=== PATIENT | female | born 1950 | race Caucasian/White ===

== ENCOUNTER 2017-12-20 16:56 | Emergency (ER) | payer OTHER, MEDICARE ==
[2017-12-20 17:15] VITALS: BP 155/89; PULSE 68; TEMP 98; BMI 40.2
[2017-12-20] MEDS ORDERED: SODIUM CHLORIDE 1,000 ML IV STA (17:50)
[2017-12-20 18:05] LABS: BASO % 1.8 % (0-2.0); EOS % 0.4 % (0-4.5); HEMATOCRIT 39.9 % (32.4-45.2); HEMOGLOBIN 13.6 GM/dl (10.7-15.3); LYMPH % 17.5 % (8-40); MCH 30.3 pg (25.7-33.7); MCHC 34.2 g/dl (32.0-36.0); MEAN CELL VOLUME 88.6 fl (80-96); MEAN PLT VOLUME 9.6 fl (7.5-11.1); MONO % 3.3 % (3.8-10.2); PLATELET COUNT 295 K/MM3 (134-434); RBC 4.51 M/mm3 (3.60-5.2); RDW 12.5 % (11.6-15.6); WHITE BLOOD COUNT 10.6 K/mm3 (4.0-10.8)
[2017-12-20 18:08] LABS: PH,URINE 5.5 (4.5-8); URINE APPEARANCE Cloudy; URINE BILIRUBIN 1+ (NEGATIVE); URINE GLUCOSE (UA) Negative (NEGATIVE); URINE KETONE Trace (NEGATIVE); URINE LEUK ESTERASE Negative (NEGATIVE); URINE NITRITE Negative (NEGATIVE); URINE PROTEIN 3+ (NEGATIVE); URINE UROBILINOGEN 0.2 (0.2-1.0)
[2017-12-20 18:09] LABS: URINE COLOR DK YELLOW
[2017-12-20 18:23] LABS: URINE RBC >100 /hpf (0-3)
[2017-12-20 18:24] LABS: EPI CELLS FEW /HPF; URINE BACTERIA MODERATE /hpf (NEGATIVE)
[2017-12-20 18:26] LABS: ALBUMIN 4.5 g/dl (3.5-5.0); ALK PHOS 60 U/L (32-92); ANION GAP 11 (8-16); BILIRUBIN,TOTAL 1.4 mg/dl (0.2-1.0); BLOOD UREA NITROGEN 23 mg/dl (7-18); CALCIUM 9.2 mg/dl (8.4-10.2); CHLORIDE 103 mmol/L (98-107); CO2 22 mmol/L (22-28); GLUCOSE,RANDOM 156 mg/dl (74-106); POTASSIUM 4.3 mmol/L (3.5-5.1); SGOT/AST 30 U/L (10-42); SGPT/ALT 34 U/L (10-40); SODIUM 136 mmol/L (136-145); TOT PROT 7.4 g/dl (6.4-8.3)
[2017-12-20 18:33] LABS: CREATININE < 0.8 mg/dl (0.6-1.3)
--- NOTE | 2017-12-20 19:03 | PDOC ---
History of Present Illness - General History Source: Patient Exam Limitations: No Limitations - History of Present Illness Initial Comments: 12/20/17 19:07 The patient is a 67 year old female with a significant past medical history of MVP, HLD, hypertension, hypothyroid, depression, hearing loss of right ear who presents to the emergency department complaining of right lower quadrant pain since this morning. The patient reports right lower quadrant pain radiating to right ribs and right flank. The patient describes the pain as intermittent, worsening, and sharp in nature. She reports associated symptoms of dizziness, chills, diaphoresis, nausea, and urinary urgency. She states she felt nauseous yesterday, but had no other symptoms. She reports she stopped taking metformin because it olivia her nauseous, but she will follow up this Wednesday to start new medication. The patient denies chest pain, shortness of breath, and headache. Denies fevers, vomiting, diarrhea, and constipation. Denies dysuria, frequency, and hematuria. Allergies: iodine Past surgical history: Ear, TAHBSO, Laparoscopic gallbladder, spinal surgery ( 2010), Carpal tunnel Social history: Former smoker. No reported alcohol or drug use. <Tristan Mercado - Last Filed: 12/20/17 19:06> - General History Source: Patient Exam Limitations: No Limitations <Kumar Chavarria - Last Filed: 01/07/18 07:46> - General Chief Complaint: Nausea Stated Complaint: NAUSEA RIGHT LOWER ABDOMINAL PAIN Time Seen by Provider: 12/20/17 17:22 Past History <Tristan Mercado - Last Filed: 12/20/17 19:06> - Past Medical History Anemia: No Asthma: No Cancer: No Cardiac Disorders: No CVA: No COPD: No CHF: No Dementia: No Diabetes: Yes (BORDERLINE) GI Disorders: No Disorders: No HTN: Yes Hypercholesterolemia: Yes Liver Disease: No Psychiatric Problems: Yes (DEPRESSION) Seizures: No Thyroid Disease: Yes (HYPOTHYROIDISM) Other medical history: MVP, HEARING LOSS REIGHT EAR - Surgical History Abdominal Surgery: Yes Appendectomy: No Cardiac Surgery: No Cholecystectomy: Yes (LAP) Lung Surgery: No Neurologic Surgery: Yes (SPINE SX 10/2010) Orthopedic Surgery: Yes - Suicide/Smoking/Psychosocial Hx Smoking History: Former smoker Have you smoked in the past 12 months: No Information on smoking cessation initiated: No Hx Alcohol Use: No Drug/Substance Use Hx: No Substance Use Type: None Hx Substance Use Treatment: No <Kumar Chavarria - Last Filed: 01/07/18 07:46> - Past Medical History Allergies/Adverse Reactions: Allergies Allergy/AdvReac Type Severity Reaction Status Date / Time iodine Allergy Severe Swelling Verified 12/20/17 16:59 Home Medications: Ambulatory Orders Atorvastatin Calcium [Lipitor] 20 mg PO DAILY 01/16/13 Levothyroxine [Synthroid] 25 mcg PO DAILY 01/16/13 Nebivolol [Bystolic] 20 mg PO DAILY 01/16/13 Duloxetine HCl [Cymbalta] 120 mg PO DAILY 12/20/17 Isosorbide Mononitrate [Imdur -] 30 mg PO DAILY 12/20/17 Oxycodone HCl/Acetaminophen [Percocet 5-325 mg Tablet] 1 tab PO Q6H PRN #12 tablet MDD 3 tabs 12/20/17 Tamsulosin HCl [Flomax] 0.4 mg PO DAILY #10 capsule 12/20/17 Review of Systems - Review of Systems Able to Perform ROS?: Yes Comments:: GENERAL/CONSTITUTIONAL: (+)Chills. No fever. No weakness. HEAD, EYES, EARS, NOSE AND THROAT: No change in vision. No ear pain or discharge. No sore throat. CARDIOVASCULAR: No chest pain or shortness of breath. RESPIRATORY: No cough, wheezing, or hemoptysis. GASTROINTESTINAL: (+)Nausea. No vomiting, diarrhea or constipation. GENITOURINARY: (+)Urinary urgency. No dysuria or frequency. MUSCULOSKELETAL: (+)Right lower quadrant pain. (+)Right flank pain. No joint or muscle swelling. No neck pain. SKIN: No rash NEUROLOGIC: (+)Dizziness. No headache, vertigo, loss of consciousness, or change in strength/sensation. ENDOCRINE: No increased thirst. No abnormal weight change. HEMATOLOGIC/LYMPHATIC: No anemia, easy bleeding, or history of blood clots. ALLERGIC/IMMUNOLOGIC: No hives or skin allergy. <Tristan Mercado - Last Filed: 12/20/17 19:06> *Physical Exam - Vital Signs Last Vital Signs Temp Pulse Resp BP Pulse Ox 98 F 68 20 155/89 100 12/20/17 16:58 12/20/17 16:58 12/20/17 16:58 12/20/17 16:58 12/20/17 16:58 - Physical Exam Comments: GENERAL: Awake, alert, and fully oriented, in no acute distress HEAD: No signs of trauma EYES: PERRLA, EOMI, sclera anicteric, conjunctiva clear ENT: Auricles normal inspection, hearing grossly normal, nares patent, Moist mucosa NECK: Normal ROM, supple, no JVD, or masses LUNGS: Breath sounds equal, clear to auscultation bilaterally. No wheezes, and no crackles HEART: Regular rate and rhythm, normal S1 and S2, no murmurs, rubs or gallops ABDOMEN: (+)Mild tenderness to palpation to right lower quadrant Soft. No guarding, no rebound. No masses MUSCULOSKELETAL: (+)Right CVA tenderness. EXTREMITIES: Normal range of motion, no edema. No clubbing or cyanosis. No cords, erythema, or tenderness NEUROLOGICAL: Cranial nerves II through XII grossly intact. Normal speech, normal gait SKIN: Warm, Dry, normal turgor, no rashes or lesions noted. <Tristan Mercado - Last Filed: 12/20/17 19:06> - Vital Signs Last Vital Signs Temp Pulse Resp BP Pulse Ox 98 F 68 20 155/89 100 12/20/17 16:58 12/20/17 16:58 12/20/17 16:58 12/20/17 16:58 12/20/17 16:58 <Kumar Chavarria - Last Filed: 01/07/18 07:46> ED Treatment Course - LABORATORY CBC & Chemistry Diagram: 12/20/17 17:51 12/20/17 17:51 - ADDITIONAL ORDERS Additional order review: Laboratory Results 12/20/17 12/20/17 17:51 17:51 Sodium 136 Potassium 4.3 Chloride 103 Carbon Dioxide 22 D Anion Gap 11 BUN 23 H Creatinine < 0.8 D Creat Clearance w eGFR > 60 Random Glucose 156 H Calcium 9.2 Total Bilirubin 1.4 H AST 30 D ALT 34 D Alkaline Phosphatase 60 Total Protein 7.4 Albumin 4.5 Urine Color Dk yellow Urine Appearance Cloudy Urine pH 5.5 Ur Specific Dawn >= 1.030 H Urine Protein 3+ H Urine Glucose (UA) Negative Urine Ketones Trace Urine Blood 3+ H Urine Nitrite Negative Urine Bilirubin 1+ H Urine Urobilinogen 0.2 Ur Leukocyte Esterase Negative Urine RBC >100 Urine WBC 5-10 Ur Epithelial Cells Few Urine Bacteria Moderate 12/20/17 17:51 RBC 4.51 MCV 88.6 MCHC 34.2 RDW 12.5 MPV 9.6 Neutrophils % 77.0 Lymphocytes % 17.5 Monocytes % 3.3 L Eosinophils % 0.4 Basophils % 1.8 - Medications Given in the ED: ED Medications Discontinued Medications Generic Name Dose Route Start Last Admin Trade Name Freq PRN Reason Stop Dose Admin Sodium Chloride 1,000 mls @ 1,000 mls/hr 12/20/17 17:50 12/20/17 17:59 Normal Saline - IV 12/20/17 18:49 1,000 mls/hr ASDIR STA Administration <Tristan Mercado - Last Filed: 12/20/17 19:06> - LABORATORY CBC & Chemistry Diagram: 12/20/17 17:51 12/20/17 17:51 - ADDITIONAL ORDERS Additional order review: Laboratory Results 12/20/17 12/20/17 17:51 17:51 Sodium 136 Potassium 4.3 Chloride 103 Carbon Dioxide 22 D Anion Gap 11 BUN 23 H Creatinine < 0.8 D Creat Clearance w eGFR > 60 Random Glucose 156 H Calcium 9.2 Total Bilirubin 1.4 H AST 30 D ALT 34 D Alkaline Phosphatase 60 Total Protein 7.4 Albumin 4.5 Urine Color Dk yellow Urine Appearance Cloudy Urine pH 5.5 Ur Specific Dawn >= 1.030 H Urine Protein 3+ H Urine Glucose (UA) Negative Urine Ketones Trace Urine Blood 3+ H Urine Nitrite Negative Urine Bilirubin 1+ H Urine Urobilinogen 0.2 Ur Leukocyte Esterase Negative Urine RBC >100 Urine WBC 5-10 Ur Epithelial Cells Few Urine Bacteria Moderate 12/20/17 17:51 RBC 4.51 MCV 88.6 MCHC 34.2 RDW 12.5 MPV 9.6 Neutrophils % 77.0 Lymphocytes % 17.5 Monocytes % 3.3 L Eosinophils % 0.4 Basophils % 1.8 - RADIOLOGY Radiology Studies Ordered: Category Date Time Status SPIRAL- RENAL-STONE CT [CT] Stat CT Scan 12/20/17 17:48 Ordered - Medications Given in the ED: ED Medications Discontinued Medications Generic Name Dose Route Start Last Admin Trade Name Freq PRN Reason Stop Dose Admin Sodium Chloride 1,000 mls @ 1,000 mls/hr 12/20/17 17:50 12/20/17 17:59 Normal Saline - IV 12/20/17 18:49 1,000 mls/hr ASDIR STA Administration <Kumar Chavarria - Last Filed: 01/07/18 07:46> Medical Decision Making - Medical Decision Making 12/20/17 18:58 A portion of this note was documented by scribe services under my direction. I have reviewed the details of the note, within reason, and agree with the documentation with the following case summary and management plan written by me. Patient treated in the ED. Nursing notes are reviewed and incorporated into the medical decision-making. Vital signs reviewed. Peripheral IV access obtained by the nurse, laboratory studies are drawn and sent, reviewed and interpreted by myself. Vital Signs Temp Pulse Resp BP Pulse Ox 98 F 68 20 155/89 100 12/20/17 16:58 12/20/17 16:58 12/20/17 16:58 12/20/17 16:58 12/20/17 16:58 67-year-old female with history of diabetes, hyperlipidemia presents with right lower quadrant pain and right flank pain since this morning. The patient was feeling somewhat nauseous but denies any pain yesterday. Today, the patient started feel right flank pain and right lower quadrant pain with nausea. No vomiting or fevers. Denies dysuria. Patient started noticing dark in color for urine. While waiting here in the ER, the patient's pain improved significantly. The patient certainly has dark color urine concerning for kidney stone. I suspect this is likely renal colic versus less likely appendicitis. We'll obtain a spiral CT, labs and urinalysis and reassess. Patient signed out to Dr. Osorio for further management and disposition. <Kumar Chavarria - Last Filed: 01/07/18 07:46> *DC/Admit/Observation/Transfer - Attestations Scribe Attestion: Documentation prepared by Tristan Mercado, acting as medical record specialist for Kumar Chavarria MD. <Tristan Mercado - Last Filed: 12/20/17 19:06> <Kumar Chavarria - Last Filed: 01/07/18 07:46> Diagnosis at time of Disposition: Renal colic on right side - Discharge Dispostion Disposition: HOME Condition at time of disposition: Stable - Prescriptions Prescriptions: Oxycodone HCl/Acetaminophen [Percocet 5-325 mg Tablet] 1 tab PO Q6H PRN #12 tablet MDD 3 tabs PRN Reason: Pain Level 7 - 10 Tamsulosin HCl [Flomax] 0.4 mg PO DAILY #10 capsule - Patient Instructions Printed Discharge Instructions: Kidney Stones -- Adult Additional Instructions: drink plenty of water flomax 0.4 mg daily ibuprofen/acetaminophen as needed for mild to moderate pain percocet 5/325 as needed for severe pain return to ER if you have persistent severe pain or vomiting strain all urine and keep all fragments for analysis followup with your doctor for urology referral if pain persists for more than 5- 7 days
--- NOTE | 2017-12-20 19:51 | PDOC ---
*Physical Exam - Vital Signs Last Vital Signs Temp Pulse Resp BP Pulse Ox 98 F 68 20 155/89 100 12/20/17 16:58 12/20/17 16:58 12/20/17 16:58 12/20/17 16:58 12/20/17 16:58 ED Treatment Course - LABORATORY CBC & Chemistry Diagram: 12/20/17 17:51 12/20/17 17:51 - ADDITIONAL ORDERS Additional order review: Laboratory Results 12/20/17 12/20/17 17:51 17:51 Sodium 136 Potassium 4.3 Chloride 103 Carbon Dioxide 22 D Anion Gap 11 BUN 23 H Creatinine < 0.8 D Creat Clearance w eGFR > 60 Random Glucose 156 H Calcium 9.2 Total Bilirubin 1.4 H AST 30 D ALT 34 D Alkaline Phosphatase 60 Total Protein 7.4 Albumin 4.5 Urine Color Dk yellow Urine Appearance Cloudy Urine pH 5.5 Ur Specific [place] >= 1.030 H Urine Protein 3+ H Urine Glucose (UA) Negative Urine Ketones Trace Urine Blood 3+ H Urine Nitrite Negative Urine Bilirubin 1+ H Urine Urobilinogen 0.2 Ur Leukocyte Esterase Negative Urine RBC >100 Urine WBC 5-10 Ur Epithelial Cells Few Urine Bacteria Moderate 12/20/17 17:51 RBC 4.51 MCV 88.6 MCHC 34.2 RDW 12.5 MPV 9.6 Neutrophils % 77.0 Lymphocytes % 17.5 Monocytes % 3.3 L Eosinophils % 0.4 Basophils % 1.8 - Medications Given in the ED: ED Medications Discontinued Medications Generic Name Dose Route Start Last Admin Trade Name Freq PRN Reason Stop Dose Admin Sodium Chloride 1,000 mls @ 1,000 mls/hr 12/20/17 17:50 12/20/17 17:59 Normal Saline - IV 12/20/17 18:49 1,000 mls/hr ASDIR STA Administration Progress Note - Progress Note Progress Note: Care of this patient received from Dr. Chavarria. Abdominal/pelvic renal stone protocol CT reveals moderate hydronephrosis/ hydroureter and 4.4 mm stone in the distal ureter. Results discussed with the patient. She is currently comfortable without development of any new symptoms. Patient will be discharged with instructions to drink plenty of fluids and prescription for Flomax 0.4 mg to be taken once a day. 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 She should return to the emergency room if she has persistent, severe pain or develops vomiting. Prescription for Percocet 5/325 ( #12) will be sent to her pharmacy to be used as needed for severe pain; meanwhile, ibuprofen will be used for [id number] pain *DC/Admit/Observation/Transfer Diagnosis at time of Disposition: Renal colic on right side - Discharge Dispostion Disposition: HOME Condition at time of disposition: Stable - Prescriptions Prescriptions: Oxycodone HCl/Acetaminophen [Percocet 5-325 mg Tablet] 1 tab PO Q6H PRN #12 tablet MDD 3 tabs PRN Reason: Pain Level 7 - 10 Tamsulosin HCl [Flomax] 0.4 mg PO DAILY #10 capsule - Referrals - Patient Instructions Printed Discharge Instructions: Kidney Stones -- Adult Additional Instructions: drink plenty of water flomax 0.4 mg daily ibuprofen/acetaminophen as needed for mild to moderate pain percocet 5/325 as needed for severe pain return to ER if you have persistent severe pain or vomiting strain all urine and keep all fragments for analysis followup with your doctor for urology referral if pain persists for more than 5- 7 days - Post Discharge Activity
--- NOTE | 2017-12-22 15:29 | EKG ---
Test Reason : Blood Pressure : / mmHG Vent. Rate : 063 BPM Atrial Rate : 063 BPM P-R Int : 150 ms QRS Dur : 080 ms QT Int : 420 ms P-R-T Axes : 053 -12 048 degrees QTc Int : 429 ms NORMAL SINUS RHYTHM NORMAL ECG WHEN COMPARED WITH ECG OF 06-JUN-2007 13:52, NO SIGNIFICANT CHANGE WAS FOUND Confirmed by BETH TSANG MD ([id number]) on 12/22/2017 3:29:02 PM Referred By: MADYSON Confirmed By:BETH TSANG MD
== END 2017-12-20 20:29 | disposition home or self-care (01) ==
LOC: FER 16:56
PROC: 3E0337Z Introduction of Electrolytic and Water Balance Substance into Peripheral Vein, Percutaneous Approach (ICD-10-PCS; principal; 2017-12-20)
DX: N20.1 Calculus of ureter (principal); I10 Essential (primary) hypertension; E78.9 Disorder of lipoprotein metabolism, unspecified; E03.9 Hypothyroidism, unspecified; I34.1 Nonrheumatic mitral (valve) prolapse; F32.9 Major depressive disorder, single episode, unspecified; H91.91 Unspecified hearing loss, right ear
CPT/HCPCS: 36415; 74176; 80053; 81003; 81015; 85025; 87086; 93005; 96360; 99283-25; J7030

== ENCOUNTER 2018-03-22 13:40 | Emergency (ER) | payer OTHER, MEDICARE ==
[2018-03-22] MEDS ORDERED: morphine CARPU-JECT 4 MG/1 ML DISP.SYRIN IVPUSH PRN (13:44)
[2018-03-22] MEDS ORDERED: ONDANSETRON 4 MG/2 ML VIAL IVPUSH ONE (13:44)
[2018-03-22] MEDS ORDERED: SODIUM CHLORIDE 1,000 ML IV STA (13:44)
--- NOTE | 2018-03-22 13:46 | PDOC ---
History of Present Illness - General Chief Complaint: Pain Stated Complaint: LUQ ABD PAIN Time Seen by Provider: 03/22/18 13:44 History Source: Patient Exam Limitations: No Limitations - History of Present Illness Initial Comments: 03/22/18 15:22 Bj 67 year old female with a significant past medical history of MVP, HLD, hypertension, hypothyroid, depression, hearing loss, kidney stones presenting with acute onset of left flank and abdominal pain, nausea and NBNB emesis this morning, feels similar to prior kidney stones. Last kidney stone ~2 months ago in December 2017. No urinary symptoms. No diarrhea, fevers or chills. Past History - Past Medical History Allergies/Adverse Reactions: Allergies Allergy/AdvReac Type Severity Reaction Status Date / Time iodine Allergy Severe Swelling Verified 03/22/18 13:46 Home Medications: Ambulatory Orders Atorvastatin Calcium [Lipitor] 20 mg PO DAILY 01/16/13 Levothyroxine [Synthroid -] 25 mcg PO DAILY 01/16/13 Nebivolol [Bystolic -] 20 mg PO DAILY 01/16/13 Duloxetine HCl [Cymbalta] 120 mg PO DAILY 12/20/17 Isosorbide Mononitrate [Imdur -] 30 mg PO DAILY 12/20/17 Ibuprofen [Motrin -] 600 mg PO QID PRN #20 tablet 03/22/18 Ondansetron [Zofran Odt -] 4 mg SL TID PRN #9 od.tablet 03/22/18 Oxycodone HCl 10 mg PO QID PRN #12 tablet MDD 4 03/22/18 Anemia: No Asthma: No Cancer: No Cardiac Disorders: No CVA: No COPD: No CHF: No Dementia: No Diabetes: Yes (BORDERLINE) GI Disorders: No Disorders: No HTN: Yes Hypercholesterolemia: Yes Liver Disease: No Psychiatric Problems: Yes (DEPRESSION) Seizures: No Thyroid Disease: Yes (HYPOTHYROIDISM) - Surgical History Abdominal Surgery: Yes Appendectomy: No Cardiac Surgery: No Cholecystectomy: Yes (LAP) Lung Surgery: No Neurologic Surgery: Yes (SPINE SX 10/2010) Orthopedic Surgery: Yes - Suicide/Smoking/Psychosocial Hx Smoking History: Former smoker Have you smoked in the past 12 months: No Hx Alcohol Use: No Drug/Substance Use Hx: No Substance Use Type: None Hx Substance Use Treatment: No Review of Systems - Review of Systems Able to Perform ROS?: Yes Comments:: 03/22/18 15:26 Constitutional: no fevers or chills. HEENT: no headache or dizziness. CVS: no cp or syncope. Resp: no sob. Abdomen: no nausea or vomiting. +abdominal pain GENITOURINARY: No hematuria, dysuria, frequency, urgency or other changes. MUSCULOSKELETAL: No joint pain and swelling. No neck or back pain. SKIN: no redness or skin changes, no discharge, +rash Hematologic: no easy bruising/bleeding. NEUROLOGIC: No headache, dizziness, LOC or altered mental status. No weakness, numbness or tingling. ALLERGIC/IMMUNOLOGIC: Rash NOS, +iodine allergy All other systems reviewed and negative, or as documented in HPI. *Physical Exam - Physical Exam Comments: 03/22/18 15:22 General: Well appearing, awake and alert, NAD. HEENT: NCAT, PERRL, EOMI, clear conjunctiva, anicteric, moist mucus membranes, clear oropharynx, no oral lesions.. Neck: neck supple, FROM Resp: CTAB, normal and even respirations, no respiratory distress CVS: RRR, no murmurs, 2+ peripheral pulses throughout, no peripheral edema Abdomen: No CVAT. LLQ and LUQ tenderness, no rebound. Soft and Obese abdomen. Back: nontender, normal inspection and ROM MSK: no edema, THOMPSON x4, ROM intact. No clubbing or cyanosis. normal bulk and tone. Neuro: alert, oriented appropriately; no focal neurologic deficits. Skin: warm and well perfused, cap refill <2 sec, normal color, +various excoriated punctate rash on abdomen and upper extremities (chronic), no mucosal involvement. ED Treatment Course - LABORATORY CBC & Chemistry Diagram: 03/22/18 14:13 03/22/18 14:13 Medical Decision Making - Medical Decision Making 03/22/18 15:27 Bj 67 year old female with a significant past medical history of MVP, HLD, hypertension, hypothyroid, depression, hearing loss, kidney stones p/w left sided abdominal pain, n/v since this morning. DDx abdominal pain: GERD, PUD, esophageal spasm, pancreatitis, hepatitis, constipation, colitis, UTI, pyelonephritis, renal colic/ureterolithiasis, ileus , SBO, medication side effect, hernia, appendicitis, diverticulitis - no lower quad tenderness on right to suggest appy. more likely renal colic/ ureterolithiasis with blood in urine, history similar to prior attacks. will need CT to eval for complicated stone and r/o diverticulitis. -vital signs wnl, no fever rectally. - pain controlled with IVF, zofran, and toradol inj, with much relief. - labs reviewed, lytes and Cr normal; leukocytosis 13.8K, UA with +blood, but WBC <10 so not likely infectious and more likely from the hematuria. - affirmed no fevers or systemic sx, CT spiral with 3mm Left UPJ stone with mild hydro, perinephric stranding and small perinephric FF, otherwise unremarkable, no abscess or alternative intra abdominal infection. Pt informed of my clinical impression, treatment recommendations and disposition plan with labs and CT imaging reviewed. All questions answered to patient's satisfaction and she expressed understanding and comfort with this. Reasons for returning to the ED sooner discussed with the patient otherwise, follow up with her primary care physician, Urologist referral provided below. At the time of discharge, the patient is alert, no systemic sx - clinically improved, pain controlled, tolerating po and understands instructions. pt elects for discharge and outpatient trial of conservative management and uro followup. - d/w pt prox left UPJ stone with perinephric stranding - mild hydro noted. NSAIDS/tylenol for mild to moderate pain, rx oxycodone PRN for more severe pain. zofran for nausea, adequate hydration and oral fluids and air conditioning in hot weather. literature/evidence low for flomax benefit, so defer. urine strainer to catch urine. return precautions discussed including worsening s/s, systemic sx/fevers, inability to tolerate PO, worsening abdominal pain sx, dehydration, vomiting or other changes. - urology cs with /Dr. [facility] neonatal intensive care nurse - discussed case , amenable for followup and call tomorrow for expedited appointment 03/22/18 16:40 03/22/18 16:41 *DC/Admit/Observation/Transfer Diagnosis at time of Disposition: Ureterolithiasis, Renal colic - Discharge Dispostion Disposition: HOME Condition at time of disposition: Improved Decision to Admit order: No - Prescriptions Prescriptions: Ibuprofen [Motrin -] 600 mg PO QID PRN #20 tablet PRN Reason: Pain Ondansetron [Zofran Odt -] 4 mg SL TID PRN #9 od.tablet PRN Reason: Nausea Oxycodone HCl 10 mg PO QID PRN #12 tablet MDD 4 PRN Reason: Pain - Referrals Referrals: Jordi Child MD [Staff Physician] - - Patient Instructions Printed Discharge Instructions: DI for Kidney Stones, Renal (Kidney) Disease Diet -- For People Not on Dialysis Additional Instructions: Your CT scan shows Kidney stone on left causing your symptoms, urine and lab work without signs of major infection. Motrin/tylenol every 6 hours as needed for mild to moderate pain, oxycodone as needed for more severe pain. zofran for nausea, adequate hydration and oral fluids and air conditioning in hot weather. literature/evidence low for flomax benefit, so defer. urine strainer to catch urine. return precautions discussed including worsening symptoms systemic sx/ fevers, inability to tolerate PO, worsening abdominal pain sx, dehydration, vomiting or other changes. - urology cs with /Dr. [facility] neonatal intensive care nurse - discussed case , amenable for followup and call tomorrow for expedited appointment Call [phone] tomorrow for an expedited appointment in the morning. - follow up on your urine cultures to check for infection, over the past 24 hours for cultures to grow. preliminary urine testing with blood but insignificant for infection - Post Discharge Activity
[2018-03-22 14:10] LABS: URINE APPEARANCE Clear; URINE BILIRUBIN Negative (NEGATIVE); URINE COLOR Amber; URINE GLUCOSE (UA) Negative (NEGATIVE); URINE KETONE 1+ (NEGATIVE); URINE LEUK ESTERASE Negative (NEGATIVE); URINE NITRITE Negative (NEGATIVE); URINE UROBILINOGEN 0.2 (0.2-1.0)
[2018-03-22 14:11] LABS: URINE PROTEIN 1+ (NEGATIVE)
[2018-03-22] MEDS ORDERED: ONDANSETRON 4 MG/2 ML VIAL ONE (14:15)
[2018-03-22] MEDS ORDERED: KETOROLAC TROMETHAMINE 30 MG/1 ML VIAL ONE (14:15)
[2018-03-22 14:22] VITALS: BMI 38.4
[2018-03-22 14:22] LABS: BASO % 0.2 % (0-2.0); EOS % 0.2 % (0-4.5); HEMATOCRIT 39.2 % (32.4-45.2); HEMOGLOBIN 13.3 GM/dl (10.7-15.3); LYMPH % 8.9 % (8-40); MCH 30.7 pg (25.7-33.7); MEAN CELL VOLUME 90.3 fl (80-96); MEAN PLT VOLUME 8.6 fl (7.5-11.1); MONO % 3.5 % (3.8-10.2); NEUT % 87.2 % (42.8-82.8); PLATELET COUNT 285 K/MM3 (134-434); RBC 4.34 M/mm3 (3.60-5.2); RDW 12.3 % (11.6-15.6); WHITE BLOOD COUNT 13.8 K/mm3 (4.0-10.8)
[2018-03-22 14:30] LABS: ALBUMIN 4.1 g/dl (3.5-5.0); ALK PHOS 62 U/L (32-92); ANION GAP 8 (8-16); BILIRUBIN,TOTAL 2.1 mg/dl (0.2-1.0); BLOOD UREA NITROGEN 23 mg/dl (7-18); CALCIUM 8.6 mg/dl (8.4-10.2); CHLORIDE 106 mmol/L (98-107); CO2 24 mmol/L (22-28); CREATININE 1.1 mg/dl (0.6-1.3); GLUCOSE,RANDOM 157 mg/dl (74-106); POTASSIUM 3.6 mmol/L (3.5-5.1); SGOT/AST 30 U/L (10-42); SGPT/ALT 31 U/L (10-40); SODIUM 138 mmol/L (136-145); TOT PROT 7.2 g/dl (6.4-8.3)
[2018-03-22 14:51] LABS: EPI CELLS FEW /HPF; URINE BACTERIA FEW /hpf (NEGATIVE); URINE RBC 20-30 /hpf (0-3)
[2018-03-22 16:31] VITALS: BP 143/63; PULSE 82; TEMP 98.7
[2018-03-22 16:38] LABS: LIPASE 282 U/L (73-393)
--- NOTE | 2018-03-23 10:29 | EKG ---
Test Reason : Blood Pressure : / mmHG Vent. Rate : 084 BPM Atrial Rate : 084 BPM P-R Int : 150 ms QRS Dur : 080 ms QT Int : 380 ms P-R-T Axes : 073 006 057 degrees QTc Int : 449 ms SINUS RHYTHM WITH PREMATURE ATRIAL COMPLEXES OTHERWISE NORMAL ECG WHEN COMPARED WITH ECG OF 20-DEC-2017 18:04, PREMATURE ATRIAL COMPLEXES ARE NOW PRESENT Confirmed by TRINH DAWN, BETH ([id number]) on 03/23/2018 10:28:59 AM Referred By: RYLAN PANTOJA Confirmed By:BETH TASNG MD
== END 2018-03-22 17:08 | disposition home or self-care (01) ==
LOC: FER 13:40
PROC: 3E033GC Introduction of Other Therapeutic Substance into Peripheral Vein, Percutaneous Approach (ICD-10-PCS; principal; 2018-03-22)
PROC: 3E0337Z Introduction of Electrolytic and Water Balance Substance into Peripheral Vein, Percutaneous Approach (ICD-10-PCS; 2018-03-22)
DX: N20.2 Calculus of kidney with calculus of ureter (principal); Z87.442 Personal history of urinary calculi; E78.5 Hyperlipidemia, unspecified; I10 Essential (primary) hypertension; F32.9 Major depressive disorder, single episode, unspecified; K21.9 Gastro-esophageal reflux disease without esophagitis; I34.1 Nonrheumatic mitral (valve) prolapse
CPT/HCPCS: 36415; 74176; 80053; 81003; 81015; 83690; 85025; 87086; 93005; 99283-25; J7030

== ENCOUNTER 2019-11-07 03:13 | Emergency (ER) | payer OTHER, MEDICARE ==
[2019-11-07 03:39] VITALS: BP 108/73; PULSE 90; TEMP 100.5; BMI 36.3
--- NOTE | 2019-11-07 03:40 | PDOC ---
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 Patient reports 7 days of fever, myalgias, cough, poor PO solid/liquid intake, and nausea with dry-heaving. Denies any known covid exposures at the ID, lives alone at home. Was having R ear pain with green productive cough, given azithromycin by PMD and took 2 doses. Denies any cardiac or pulmonary history, no asthma, non-smoker. Denies chest pain, palpitations, diarrhea, wheezing, abdominal pain, urinary symptoms. Allergy to iodine, makes tongue swollen. Medications include new DM medication which she says causes her to have constipation, last took yesterday morning. No prior abdominal surgeries. Past History - Past Medical History Allergies/Adverse Reactions: Allergies Allergy/AdvReac Type Severity Reaction Status Date / Time iodine Allergy Severe Swelling Verified 11/07/19 03:39 Home Medications: Ambulatory Orders Atorvastatin Calcium [Lipitor] 20 mg PO DAILY 01/16/13 Levothyroxine [Synthroid -] 25 mcg PO DAILY 01/16/13 Nebivolol [Bystolic -] 20 mg PO DAILY 01/16/13 Duloxetine HCl [Cymbalta] 120 mg PO DAILY 12/20/17 Isosorbide Mononitrate [Imdur -] 30 mg PO DAILY 12/20/17 Ibuprofen [Motrin -] 600 mg PO QID PRN #20 tablet 03/22/18 Ondansetron [Zofran Odt -] 4 mg SL TID PRN #9 od.tablet 03/22/18 Oxycodone HCl 10 mg PO QID PRN #12 tablet MDD 4 03/22/18 Ondansetron [Zofran *Odt*] 4 mg SL TID #9 od.tablet 11/07/19 Anemia: No Asthma: No Cancer: No Cardiac Disorders: No CVA: No COPD: No CHF: No Dementia: No Diabetes: Yes (BORDERLINE) GI Disorders: No Disorders: No HTN: Yes Hypercholesterolemia: Yes Liver Disease: No Psychiatric Problems: Yes (DEPRESSION) Seizures: No Thyroid Disease: Yes (HYPOTHYROIDISM) - Surgical History Abdominal Surgery: Yes Appendectomy: No Cardiac Surgery: No Cholecystectomy: Yes (LAP) Lung Surgery: No Neurologic Surgery: Yes (SPINE SX 10/2010) Orthopedic Surgery: Yes - Psycho Social/Smoking Cessation Hx Smoking History: Former smoker Have you smoked in the past 12 months: No Hx Alcohol Use: No Drug/Substance Use Hx: No Substance Use Type: None Hx Substance Use Treatment: No Review of Systems - Review of Systems Able to Perform ROS?: Yes Constitutional: Yes: Chills, Fever HEENTM: No: Symptoms Reported Respiratory: Yes: Cough, Shortness of Breath. No: SOB with Exertion, SOB at Rest Cardiac (ROS): No: Chest Pain, Edema, Lightheadedness, Palpitations, Syncope ABD/GI: Yes: Nausea, Poor Appetite, Poor Fluid Intake, Vomiting. No: Constipated, Diarrhea, Abdominal cramping : No: Symptoms Reported Musculoskeletal: No: Back Pain, Muscle Pain, Muscle Weakness Integumentary: No: Symptoms Reported Neurological: No: Headache, Numbness, Paresthesia, Pre-Existing Deficit, Weakness Endocrine: No: Symptoms Reported Hematologic/Lymphatic: No: Symptoms Reported All Other Systems: Reviewed and Negative *Physical Exam - Physical Exam General Appearance: Yes: Nourished, Appropriately Dressed, Obese, Other (in good spirits, resting comfortably in bed, in NAD). No: Apparent Distress, Disheveled HEENT: positive: EOMI, DASIA, Normal Voice, Symmetrical, Pharynx Normal. negative: Scleral Icterus (R), Scleral Icterus (L), Pharyngeal Erythema, Ton sillar Exudate, Tonsillar Erythema, Hearing Decreased Neck: positive: Trachea midline, Normal Thyroid, Supple. negative: Tender, Decreased range of motion, Lymphadenopathy (R), Lymphadenopathy (L) Respiratory/Chest: positive: Lungs Clear, Normal Breath Sounds. negative: Chest Tender, Respiratory Distress, Accessory Muscle Use, Crackles, Rales, Rhonchi, Stridor, Wheezing Cardiovascular: positive: Regular Rhythm, Regular Rate. negative: Murmur Gastrointestinal/Abdominal: positive: Normal Bowel Sounds, Soft, Protuberent. negative: Tender, Organomegaly, Distended, Guarding, Rebound Musculoskeletal: positive: Normal Inspection. negative: CVA Tenderness, Decreased Range of Motion, Vertebral Tenderness Extremity: positive: Normal Capillary Refill, Normal Inspection, Normal Range of Motion, Pelvis Stable. negative: Tender, Coldness, Cyanosis, Pedal Edema, Swelling Integumentary: positive: Normal Color, Dry, Warm Neurologic: positive: Fully Oriented, Alert, Normal Mood/Affect, Normal Response ED Treatment Course - LABORATORY CBC & Chemistry Diagram: 11/07/19 03:48 11/07/19 03:48 Medical Decision Making - Medical Decision Making 11/07/19 04:28 Patient has history NIDDM, HTN presenting with fever/cough/myalgias consistent with viral URI including COVID-19 as well as N/V concerning for viral illness vs. gastroenteritis vs. abdominal pathology such as GB disease or pancreatitis. No acute abdomen on exam, low suspicion of emergent pathology. 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 - CBC/CMP for eval lytes/infection - CP/ECG/CXR for PNA, ACS eval - lipase for eval N/V pancreatitis - 1L NS, Zofran, Ofirmev for symptom control 11/07/19 04:39 Labs notable for: - CBC WNL - Coags WNL - K 3.1 - ALT 115, likely 2/2 viral infection, unconcerning at this time - AP 213 11/07/19 04:40 CXR bedside read unremarkable for pathology. 11/07/19 04:51 ECG notable for NSR, HR 83, QRS 86, QTc 448, no concerning TWI or AMPARO/D. 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 11/07/19 06:52 Patient feels much better. Says she was dizzy earlier but now feels much better. No longer nauseated. Sent script for Zofran. Stable for discharge home with PMD f/u and strict return precautions. Discharge - Discharge Information Problems reviewed: Yes Clinical Impression/Diagnosis: Viral respiratory infection Fever Qualifiers: Fever type: unspecified Qualified Code(s): R50.9 - Fever, unspecified Nausea & vomiting Qualifiers: Vomiting type: unspecified Vomiting Intractability: non-intractable Qualified Code(s): R11.2 - Nausea with vomiting, unspecified Condition: Fair Disposition: HOME - Additional Discharge Information Prescriptions: Ondansetron [Zofran *Odt*] 4 mg SL TID #9 od.tablet - Follow up/Referral Referrals: Radha Rivas MD [Primary Care Provider] - - Patient Discharge Instructions Patient Printed Discharge Instructions: [facility]-Coronavirus Instructions Additional Instructions: Today you were evaluated for fevers, vomiting, and cough. Your labs and x-ray are normal. You likely have a viral infection, possibly coronavirus. We have tested you for this and will contact you about the results if positive. Otherwise you are stable to return home and quarantine yourself for 2 weeks. We have sent you a Zofran prescription for your nausea to help you eat and drink, stay hydrated by drinking sports drinks and soups. Continue taking the Z-Gume as prescribed. Please follow-up with your primary doctor. If you experience worsening cough, vomiting, chest pain, abdominal pain, fever, diarrhea, difficulty breathing, or any other new or concerning symptoms, please return to the emergency room. - Post Discharge Activity Work/Back to School Note: Back to Work
--- NOTE | 2019-11-07 03:43 | PDOC ---
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 patient reports symptoms started 6 days ago. patient was started on azithromycin by pcp yesterday. today with worsening nausea/ vomiting, cough and dizziness A: covid r/o nausea/ vomiting P: patient to room 9 for further evaluation Discharge Disposition - Diagnosis Viral respiratory infection Fever Qualifiers: Fever type: unspecified Qualified Code(s): R50.9 - Fever, unspecified Nausea & vomiting Qualifiers: Vomiting type: unspecified Vomiting Intractability: non-intractable Qualified Code(s): R11.2 - Nausea with vomiting, unspecified - Discharge Dispostion Condition at time of disposition: Fair Last Admission D/C Date: 06/29/07 - Referrals Referrals: Radha Rivas MD [Primary Care Provider] - - Patient Instructions - Post Discharge Activity
--- NOTE | 2019-11-07 03:44 | PDOC ---
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
[2019-11-07] MEDS ORDERED: ONDANSETRON 4 MG/2 ML VIAL IVPUSH ONE (04:08)
[2019-11-07] MEDS ORDERED: ACETAMINOPHEN 1000 MG/100 ML VIAL (NON FORMULARY) IVPB ONE (04:08)
[2019-11-07 04:14] LABS: BASO % 0.2 % (0-2.0); EOS % 0.1 % (0-4.5); HEMATOCRIT 32.6 % (32.4-45.2); HEMOGLOBIN 11.2 GM/dL (10.7-15.3); LYMPH % 13.7 % (8-40); MCH 31.4 pg (25.7-33.7); MCHC 34.4 g/dl (32.0-36.0); MEAN CELL VOLUME 91.3 fl (80-96); MEAN PLT VOLUME 8.6 fl (7.5-11.1); MONO % 6.6 % (3.8-10.2); NEUT % 79.4 % (42.8-82.8); PLATELET COUNT 191 K/MM3 (134-434); RBC 3.56 M/mm3 (3.60-5.2); RDW 12.6 % (11.6-15.6); WHITE BLOOD COUNT 8.3 K/mm3 (4.0-10.0)
[2019-11-07 04:29] LABS: INR 1.11 (0.83-1.09); PROTHROMBIN TIME (PATIENT) 13.1 SEC (9.7-13.0)
[2019-11-07 04:32] LABS: ACTIVATED PTT 34.9 SECONDS (25.2-36.5)
[2019-11-07] MEDS ORDERED: ONDANSETRON 4 MG/2 ML VIAL ONE (04:32)
[2019-11-07] MEDS ORDERED: SODIUM CHLORIDE 0.9% 500 ML INFUS.BAG IV ONE (04:32)
[2019-11-07] MEDS ORDERED: ACETAMINOPHEN INJECTION 100 ML IVPB ONE (04:32)
[2019-11-07 04:41] LABS: ALBUMIN 3.4 g/dl (3.4-5.0); ALK PHOS 213 U/L (45-117); ANION GAP 7 MMOL/L (8-16); BILIRUBIN,TOTAL 0.8 mg/dL (0.2-1); BLOOD UREA NITROGEN 13.9 mg/dL (7-18); CALCIUM 7.7 mg/dL (8.5-10.1); CHLORIDE 105 mmol/L (98-107); CO2 29 mmol/L (21-32); CREATININE 0.9 mg/dL (0.55-1.3); GLUCOSE,RANDOM 164 mg/dL (74-106); POTASSIUM 3.1 mmol/L (3.5-5.1); SGOT/AST 44 U/L (15-37); SGPT/ALT 115 U/L (13-61); SODIUM 141 mmol/L (136-145); TOT PROT 6.7 g/dl (6.4-8.2)
--- NOTE | 2019-11-07 10:05 | EKG ---
Test Reason : Blood Pressure : / mmHG Vent. Rate : 083 BPM Atrial Rate : 083 BPM P-R Int : 150 ms QRS Dur : 086 ms QT Int : 382 ms P-R-T Axes : 072 013 067 degrees QTc Int : 448 ms NORMAL SINUS RHYTHM NONSPECIFIC ST ABNORMALITY ABNORMAL ECG WHEN COMPARED WITH ECG OF 22-MAR-2018 13:59, PREMATURE ATRIAL COMPLEXES ARE NO LONGER PRESENT Confirmed by Obi Hogan MD ([id number]) on 11/07/2019 10:05:25 AM Referred By: Confirmed By:Obi Hogan MD
== END 2019-11-07 06:06 | disposition home or self-care (01) ==
LOC: JER 03:13
DX: B34.9 Viral infection, unspecified (principal)
CPT/HCPCS: 36415; 71045-TC-FY; 80053; 82550; 83690; 84484; 85025; 85610; 85730; 87804; 87807; 93005; 93010; 99285-25; J0131; U0002